=== PATIENT | female | born 1960 | race Caucasian/White ===

== ENCOUNTER 2022-08-14 13:08 | Outpatient (CLI) | payer OTHER | END 2022-08-14 13:30 | disposition home or self-care (01) | LOC: SONOGRAMA 13:08 | DX: E04.1 Nontoxic single thyroid nodule (principal) ==

== ENCOUNTER 2022-08-14 13:45 | Outpatient (CLI) | payer OTHER | END 2022-08-14 13:46 | disposition home or self-care (01) | LOC: NUCLEAR 13:45 | DX: M81.0 Age-related osteoporosis without current pathological fracture (principal) ==

== ENCOUNTER 2024-08-30 14:33 | Outpatient (CLI) | payer OTHER | END 2024-08-30 14:50 | disposition home or self-care (01) | LOC: SONOGRAMA 14:33 | DX: E04.1 Nontoxic single thyroid nodule (principal) ==